=== PATIENT | male | born 1965 | race Caucasian/White ===

== ENCOUNTER 2023-04-18 11:19 | Emergency (ER) | payer OTHER ==
[~2023-04-18] VITALS: Ht 188 cm; Wt 122.7 kg
[2023-04-18] MEDS ORDERED: LIDOCAINE 2% W/EPINEPHRINE 20ML VIAL **PRES FREE INJ ONE (11:30)
[2023-04-18] MEDS ORDERED: BACI500O8 TOP (12:27)
[2023-04-18 13:23] VITALS: BP 170/89; TEMP 98.4; O2SAT 97
== END 2023-04-18 13:28 | disposition home or self-care (01) ==
LOC: M ED 11:19
DX: S01.01XA Laceration without foreign body of scalp, initial encounter (principal); Y92.009 Unspecified place in unspecified non-institutional (private) residence as the place of occurrence of the external cause; Y93.89 Activity, other specified; Y99.8 Other external cause status; X58.XXXA Exposure to other specified factors, initial encounter